=== PATIENT | male | born 2000 | race Caucasian/White ===

== ENCOUNTER 2020-04-27 10:14 | Emergency (ER) | payer MEDICAID ==
[~2020-04-27] VITALS: Ht 175.3 cm; Wt 77.0 kg
[2020-04-27] MEDS ORDERED: MORPHINE SULFATE 4 MG/ML CPJ (NOT FOR IM USE) IV ONE (11:00)
[2020-04-27] MEDS ORDERED: ONDANSETRON HCL 4MG/2ML INJ IV ONE (11:00)
[2020-04-27] MEDS ORDERED: KETOROLAC 30MG/ML VIAL IV ONE (11:00)
[2020-04-27 11:12] LABS: BASOPHILS % 0.2 % (0.0-2.0); EOSINOPHILS % 0.1 % (0.0-5.0); HEMATOCRIT. 42.7 % (42.0-52.0); HEMOGLOBIN. 14.8 g/dL (14.0-18.0); MEAN CORPUSCULAR HEMOGLOBIN 30.9 pg (28.0-32.0); MEAN CORPUSCULAR VOLUME 89.3 fL (80.0-94.0); MEAN PLATELET VOLUME 8.2 fl (7.4-10.4); MONOCYTES % 4.4 % (2.0-8.0); NEUTROPHILS % 85.3 % (40.0-76.0); PLATELET 250 x1000/uL (130-400); RED BLOOD CELL COUNT 4.78 mill/uL (4.7-6.1); RED CELL DISTRIBUTION WIDTH 13.6 % (11.6-14.6)
[2020-04-27 11:17] LABS: CHLORIDE 108 mEq/L (98-107)
[2020-04-27 15:13] VITALS: BP 127/70
== END 2020-04-27 15:14 | disposition home or self-care (01) ==
LOC: ER 10:28
DX: N20.1 Calculus of ureter (principal); N23 Unspecified renal colic
CPT/HCPCS: 36415; 74176; 80048; 85025; 96374; 96375; 99284; J1885; J2270; J2405

== ENCOUNTER 2021-04-01 18:15 | Emergency (ER) | payer MEDICAID ==
[~2021-04-01] VITALS: Ht 175.3 cm; Wt 73.0 kg
[2021-04-01 18:17] VITALS: BP 129/78
== END 2021-04-01 20:00 | disposition home or self-care (01) ==
LOC: ER 18:15
DX: F41.9 Anxiety disorder, unspecified (principal)
CPT/HCPCS: 99283